=== PATIENT | male | born 1970 | race Hispanic/Latino ===

== ENCOUNTER 2017-11-18 19:46 | Emergency (ER) | payer BC ==
[2017-11-18] MEDS ORDERED: ONDANSETRON HCL MDV 20ML 2 MG/ML VIAL ONE (19:53)
[2017-11-18] MEDS ORDERED: MORPHINE SULFATE 4 MG/1ML SYG ONE (19:53)
[2017-11-18] MEDS ORDERED: ETOMIDATE 2 MG/ML 10 ML VIAL ONE (20:06)
[2017-11-18] MEDS ORDERED: MIDAZOLAM HCL 5 MG/ML 2ML VIAL IV ONE (20:08)
[2017-11-20] MEDS ORDERED: LOSA50TA37 PO (14:20)
[2017-11-20] MEDS ORDERED: ROSU10TA27 PO (14:20)
[2017-11-20] MEDS ORDERED: LISI40TA4 PO (14:20)
== END 2017-11-18 21:17 | disposition home or self-care (01) ==
LOC: EDH 19:46
DX: S82.842A Displaced bimalleolar fracture of left lower leg, initial encounter for closed fracture (principal); E78.5 Hyperlipidemia, unspecified; I10 Essential (primary) hypertension; W17.89XA Other fall from one level to another, initial encounter; Y93.89 Activity, other specified; Y92.89 Other specified places as the place of occurrence of the external cause; Y99.8 Other external cause status
CPT/HCPCS: 27810; 73600; 73610; 96374; 96375; 99152; 99285; J2250; J2270; J3490

== ENCOUNTER 2017-11-23 08:40 | Observation (INO) | payer BC ==
[2017-11-20 12:23] LABS: BASOPHILS % (AUTO) 0.9 % (0.0-5.0); EOSINOPHILS % (AUTO) 1.7 % (0.0-8.0); HEMATOCRIT 45.7 % (42-54); LYMPHOCYTES % (AUTO) 13.5 % (21.0-51.0); MEAN CORPUSCULAR HEMOGLOBIN 31.6 pg (27.0-33.0); MEAN CORPUSCULAR HGB CONC 33.7 g/dL (32.0-36.0); MEAN CORPUSCULAR VOLUME 93.5 fL (79-99); MONOCYTES % (AUTO) 5.6 % (3.0-13.0); NEUTROPHILS % (AUTO) 78.3 % (40.0-77.0); PLATELET COUNT (AUTO) 327 K/uL (130-400); RED BLOOD CELL COUNT(AUTO) 4.88 MIL/uL (4.50-6.20); RED CELL DISTRIBUTION WIDTH 13.4 % (11.0-15.5); WHITE BLOOD COUNT (AUTO) 10.3 K/uL (4.8-10.8)
[2017-11-20 12:35] LABS: CREATININE 0.9 mg/dL (0.5-1.5); POTASSIUM 4.5 mmol/L (3.5-5.1)
[2017-11-20 12:53] VITALS: BP 127/67
[~2017-11-23] VITALS: Ht 170.2 cm; Wt 72.3 kg
[2017-11-23] VITALS (24 sets, daily range): BP systolic 104–133; BP diastolic 56–82
[~2017-11-23 08:40] MED LIST: LISI40TA4 PO; LOSA50TA37 PO; ROSU10TA27 PO
[2017-11-23] MEDS ORDERED: LACTATED RINGERS 1000ML 1,000 ML IV ONE (09:24)
[2017-11-23] MEDS: CEFAZOLIN SODIUM 1 GM VIAL ONE ×2 (09:45→13:35)
[2017-11-23] MEDS ORDERED: CEFAZOLIN SODIUM 1 GM VIAL ONE (11:35)
[2017-11-23] MEDS ORDERED: ROPIVACAINE 0.5% 5MG/ML 30ML IJ ONE (12:22)
[2017-11-23] MEDS ORDERED: PROPOFOL 10 MG/ML 20ML VIAL IV ONE (12:23)
[2017-11-23] MEDS ORDERED: FENTANYL CITRATE PF 50 MCG/1 ML 2ML VIAL ONE (12:23)
[2017-11-23] MEDS ORDERED: MIDAZOLAM HCL 1 MG/ML 2ML VIAL ONE (12:23)
[2017-11-23] MEDS ORDERED: LIDOCAINE PF 2% 5ML ABBOJECT ONE (12:26)
[2017-11-23] MEDS ORDERED: GLYCOPYRROLATE 0.2 MG/ML 5 ML VIAL ONE (12:26)
[2017-11-23] MEDS ORDERED: NEOSTIGMINE METHYLSULFATE 1MG/ML IV ONE (12:27)
[2017-11-23] MEDS ORDERED: ROCURONIUM BROMIDE 10MG/1ML 5ML VL ONE (12:27)
[2017-11-23] MEDS ORDERED: FENTANYL CITRATE PF 50 MCG/1 ML 5ML AMP IV ONE (14:01)
[2017-11-23] MEDS ORDERED: DiphenhydrAMINE HCL 50 MG/ML VIAL IVP PRN (15:15)
[2017-11-23] MEDS ORDERED: HYDROCODONE/ACETAMINOPHEN 5/325 MG TAB PO PRN ×2 (15:15)
[2017-11-23] MEDS ORDERED: MEPERIDINE-PF 25 MG/ML SYG ONE ×2 (15:32→15:45)
[2017-11-23] MEDS: SODIUM CHLORIDE 0.9% 1000ML 1,000 ML IV SCH (16:43)
[2017-11-23] MEDS: CEFAZOLIN SODIUM 1 GM VIAL IVP SCH (19:42)
[2017-11-23] MEDS: FAMOTIDINE 20MG TAB 20 MG TAB PO SCH (19:42)
[2017-11-23] MEDS ORDERED: CEFAZOLIN 2GM / 50 ML 50 ML IV SCH (20:15)
[2017-11-23] MEDS: ENOXAPARIN SODIUM 40 MG/0.4 ML SYRINGE SQ SCH (20:44)
[2017-11-23] MEDS: KETOROLAC TROMETHAMINE 15MG/ML IV PRN (21:33)
[2017-11-24] MEDS: SODIUM CHLORIDE 0.9% 1000ML 1,000 ML IV SCH ×2 (00:56→11:08)
[2017-11-24] MEDS ORDERED: HYDROMORPHONE HCL 2 MG/ML VIAL IVP PRN (02:45)
[2017-11-24] MEDS: CEFAZOLIN SODIUM 1 GM VIAL IVP SCH (04:04)
[2017-11-24 05:34] VITALS: BP 122/68
[2017-11-24 07:00] VITALS: BP 119/72
[2017-11-24] MEDS ORDERED: ASPI-1012 PO (08:36)
[2017-11-24] MEDS ORDERED: HYDR-2132 PO (08:36)
[2017-11-24] MEDS ORDERED: LISINOPRIL 40 MG TABLET PO SCH (09:00)
[2017-11-24] MEDS ORDERED: LOSARTAN 50 MG TABLET PO SCH (09:00)
[2017-11-24] MEDS ORDERED: TAMSULOSIN HCL 0.4 MG CAP.ER.24H PO SCH (09:00)
[2017-11-24] MEDS ORDERED: POLYETHYLENE GLYCOL 3350 17 GM POWD.PACK PO SCH (09:00)
[2017-11-24] MEDS ORDERED: ATORVASTATIN CALCIUM 20 MG TABLET PO SCH (09:00)
[2017-11-24] MEDS: FAMOTIDINE 20MG TAB 20 MG TAB PO SCH (09:18)
[2017-11-24] MEDS: ENOXAPARIN SODIUM 40 MG/0.4 ML SYRINGE SQ SCH (09:18)
[2017-11-24 11:12] VITALS: BP 127/81
[2017-11-24] MEDS ORDERED: PSYLLIUM SEED 1 EACH PACKET PO SCH (12:00)
[2017-11-24] MEDS: KETOROLAC TROMETHAMINE 15MG/ML IV PRN (12:34)
[2017-11-24 15:32] VITALS: BP 140/84
[2017-11-25] MEDS ORDERED: BISACODYL 5 MG TABLET.DR PO PRN (15:15)
[2017-11-26] MEDS ORDERED: BISACODYL 10 MG SUPP.RECT RC PRN (15:15)
== END 2017-11-24 15:45 | disposition home or self-care (01) ==
LOC: DAH 08:40 → DAHIP 08:41 → DAH 08:41 → 4AH 16:30
PROVIDERS: ADMIT Orthopaedic Surgery; ATTEND Orthopaedic Surgery
DX: S93.432A Sprain of tibiofibular ligament of left ankle, initial encounter (principal); S82.842A Displaced bimalleolar fracture of left lower leg, initial encounter for closed fracture; I10 Essential (primary) hypertension; W50.2XXA Accidental twist by another person, initial encounter; Y93.89 Activity, other specified; Y92.009 Unspecified place in unspecified non-institutional (private) residence as the place of occurrence of the external cause; Y99.8 Other external cause status; Z79.82 Long term (current) use of aspirin; Z79.899 Other long term (current) drug therapy; Z82.49 Family history of ischemic heart disease and other diseases of the circulatory system
CPT/HCPCS: 36415; 76000; 80048; 85025; 96372; 96374; 96375; 96376; A4218; G0378; J0690; J1650; J1885; J2001; J2175; J2250; J2704; J2710; J2795; J3010; J3490; J7030; J7120